=== PATIENT | female | born 1985 | race Caucasian/White ===

== ENCOUNTER 2016-10-11 06:25 | Emergency (ER) | payer SELFPAY ==
[~2016-10-11] VITALS: Ht 157.5 cm; Wt 73.0 kg
[2016-10-11] MEDS ORDERED: ONDANSETRON HCL 4MG/2ML VIAL IV STA (08:47)
[2016-10-11] MEDS ORDERED: PANTOPRAZOLE SODIUM 40 MG/VIAL IV STA (08:47)
[2016-10-11] MEDS ORDERED: MORPHINE SULFATE 4 MG/ML CPJ (NOT FOR IM USE) IV STA (08:47)
[2016-10-11 09:38] LABS: BASOPHILS % 0.6 % (0.0-2.0); DIFFERENTIAL COMMENT 0; HEMATOCRIT. 48.8 % (36.0-48.0); HEMOGLOBIN. 16.7 g/dL (12.0-16.0); LYMPHOCYTES % 10.5 % (20.0-50.0); MEAN CORPUSCULAR HEMOGLOBIN 31.1 pg (28.0-32.0); MEAN CORPUSCULAR HGB CONC 34.2 g/dL (31.0-37.0); MEAN PLATELET VOLUME 8.5 fl (7.4-10.4); MONOCYTES % 8.4 % (2.0-8.0); NEUTROPHILS % 80.5 % (40.0-76.0); PLATELET 368 x1000/uL (130-400); RED BLOOD CELL COUNT 5.36 mill/uL (4.2-5.4); RED CELL DISTRIBUTION WIDTH 13.4 % (11.6-14.6); WHITE BLOOD COUNT 10.9 x1000/uL (4.5-11.0)
[2016-10-11 09:41] LABS: CHLORIDE 98 mEq/L (98-107); INDEX HEMOLYSI 1 (1-3); INDEX ICTERIC 1 (1-4); INDEX LIPEMIC 1 (1-3)
[2016-10-11 09:50] LABS: ALANINE AMINOTRANSFERASE 20 IU/L (13-61); ALBUMIN 4.5 g/dL (3.4-5.0); ANION GAP 15; CALCIUM 9.2 mg/dL (8.5-10.1); CARBON DIOXIDE 27 mEq/L (21-32); ETHANOL BLOOD < 10 mg/dL; LIPASE 113 IU/L (73-393); UREA NITROGEN BLOOD 30 mg/dL (7-21); eGFR 45 mL/min (>60)
[2016-10-11 10:05] LABS: CLARITY URINE TURBID (CLEAR); COLOR URINE DARK YELLOW (YELLOW); GLUCOSE URINE NEGATIVE (NEGATIVE); KETONES URINE 1+ (NEGATIVE); LEUKOCYTE ESTERASE URINE TRACE (NEGATIVE); NITRITE URINE NEGATIVE (NEGATIVE); OCCULT BLOOD URINE 2+ (NEGATIVE); PROTEIN URINE 3+ (NEGATIVE); SPECIFIC GRAVITY URINE 1.035 (1.005-1.030)
[2016-10-11 10:25] LABS: BACTERIA URINE 4+; SQUAMOUS EPITHELIAL CELL URINE 3+ /lpf (RARE/1+)
[2016-10-11] MEDS ORDERED: ONDANSETRON HCL 4MG/2ML VIAL IV ONE (12:15)
[2016-10-11 13:22] LABS: *AMPHETAMINES SCREEN URINE NEGATIVE (NEGATIVE); *BARBITURATES SCREEN URINE NEGATIVE (NEGATIVE); *BENZODIAZEPINES SCREEN URINE NEGATIVE (NEGATIVE); ECSTASY MDMA SCREEN URINE NEGATIVE (NEGATIVE); METHADONE URINE SCREEN NEGATIVE (NEGATIVE); OPIATES URINE SCREEN NEGATIVE (NEGATIVE); PHENCYCLIDINE URINE SCREEN NEGATIVE (NEGATIVE)
[2016-10-11 13:28] LABS: *COCAINE SCREEN URINE PRESUMTIVE POSITIVE (NEGATIVE); CANNABINOID URINE SCREEN PRESUMTIVE POSITIVE (NEGATIVE)
[2016-10-11 13:48] VITALS: BP 142/100
== END 2016-10-11 14:09 | disposition home or self-care (01) ==
LOC: ER 07:31
DX: K29.70 Gastritis, unspecified, without bleeding (principal); F12.10 Cannabis abuse, uncomplicated
CPT/HCPCS: 36415; 76705; 80053; 80305; 81001; 83690; 85025; 96374; 96375; 96376; 99285; C9113; G0482; J2270; J2405; J7030; Z7610

== ENCOUNTER 2017-04-04 18:35 | Emergency (ER) | payer SELFPAY ==
[~2017-04-04] VITALS: Ht 157.5 cm; Wt 70.0 kg
[2017-04-04] MEDS ORDERED: SODIUM CHLORIDE 0.9% 1,000 ML IV ONE (22:17)
[2017-04-04] MEDS ORDERED: ONDANSETRON HCL 4MG/2ML VIAL IV ONE (22:30)
[2017-04-04 22:51] LABS: CARBON DIOXIDE 22 mEq/L (21-32); CHLORIDE 104 mEq/L (98-107)
[2017-04-04 22:52] LABS: HEMATOCRIT. 37.7 % (36.0-48.0); HEMOGLOBIN. 12.9 g/dL (12.0-16.0); MEAN CORPUSCULAR HEMOGLOBIN 31.5 pg (28.0-32.0); MEAN CORPUSCULAR VOLUME 92.3 fL (81.0-99.0); MEAN PLATELET VOLUME 8.6 fl (7.4-10.4); PLATELET 294 x1000/uL (130-400); RED BLOOD CELL COUNT 4.09 mill/uL (4.2-5.4)
[2017-04-04 23:07] LABS: PLATELET ESTIMATE NORMAL
[2017-04-04 23:10] LABS: B-HCG QUANTITATIVE 86624 mIU/mL (<3)
[2017-04-04 23:15] LABS: CLARITY URINE CLEAR (CLEAR); COLOR URINE YELLOW (YELLOW); GLUCOSE URINE TRACE (NEGATIVE); KETONES URINE 3+ (NEGATIVE); LEUKOCYTE ESTERASE URINE NEGATIVE (NEGATIVE); NITRITE URINE NEGATIVE (NEGATIVE); OCCULT BLOOD URINE NEGATIVE (NEGATIVE); PH URINE 5.5 (4.5-8.0); PROTEIN URINE TRACE (NEGATIVE); SPECIFIC GRAVITY URINE 1.028 (1.005-1.030); UROBILINOGEN URINE 0.2 E.U./dL (0.2-1.0)
[2017-04-05] MEDS ORDERED: CEFTRIAXONE 1 G PREMIX 50 ML IV ONE (01:45)
[2017-04-05 02:56] VITALS: BP 147/90
== END 2017-04-05 02:59 | disposition home or self-care (01) ==
LOC: ER 19:45
DX: O21.9 Vomiting of pregnancy, unspecified (principal); O23.41 Unspecified infection of urinary tract in pregnancy, first trimester; N39.0 Urinary tract infection, site not specified; O99.281 Endocrine, nutritional and metabolic diseases complicating pregnancy, first trimester; E86.0 Dehydration; O99.331 Smoking (tobacco) complicating pregnancy, first trimester; F17.200 Nicotine dependence, unspecified, uncomplicated; F12.10 Cannabis abuse, uncomplicated; Z3A.01 Less than 8 weeks gestation of pregnancy; Z98.890 Other specified postprocedural states
CPT/HCPCS: 36415; 76801; 80053; 81001; 81025; 84702; 85025; 86850; 86900; 86901; 96361; 96365; 96375; 99285; J0696; J2405; J7030; Z7610

== ENCOUNTER 2025-05-19 02:09 | Emergency (ER) | payer MEDICARE ==
[~2025-05-19] VITALS: Ht 154.9 cm; Wt 67.0 kg
[2025-05-19 02:31] VITALS: O2SAT 100
[2025-05-19] MEDS ORDERED: ONDANSETRON 4MG ODT PO ONE (03:00)
[2025-05-19] MEDS ORDERED: ACETAMINOPHEN 500MG TABLET PO ONE (03:00)
[2025-05-19] MEDS: SODIUM CHLORIDE 0.9% 1,000 ML IV ONE (03:26)
[2025-05-19] MEDS: ONDANSETRON HCL 4MG/2ML INJ IV ONE (03:26)
[2025-05-19 03:30] LABS: BASOPHILS % 0.9 % (0.0-2.0); EOSINOPHILS % 0.0 % (0.0-5.0); HEMATOCRIT. 42.8 % (36.0-48.0); HEMOGLOBIN. 14.7 g/dL (12.0-16.0); LYMPHOCYTES % 8.8 % (20.0-50.0); MEAN PLATELET VOLUME 9.0 fl (7.4-10.4); MONOCYTES % 2.5 % (2.0-8.0); NEUTROPHILS % 87.8 % (40.0-76.0); PLATELET 305 x1000/uL (130-400); RED BLOOD CELL COUNT 4.48 mill/uL (4.2-5.4); RED CELL DISTRIBUTION WIDTH 12.7 % (11.6-14.6)
[2025-05-19 03:40] LABS: CREATININE 1.1 mg/dL (0.6-1.0); HCG SCREEN NEGATIVE; UREA NITROGEN BLOOD 10 mg/dL (9-23)
[2025-05-19 03:41] LABS: PROTEIN TOTAL 8.8 g/dL (6.0-8.3)
[2025-05-19 03:42] LABS: ASPARTATE AMINOTRANSFERASE 37 IU/L (<34); BILIRUBIN DIRECT 0.4 mg/dL (<=3.0); BILIRUBIN TOTAL 1.2 mg/dL (0.1-1.0)
[2025-05-19] MEDS ORDERED: ONDA4TAB50 MT (04:35)
[2025-05-19 05:07] VITALS: BP 131/87; PULSE 81; RESP 18; TEMP 37.1; O2SAT 100
== END 2025-05-19 05:09 | disposition home or self-care (01) ==
LOC: ER 02:09
DX: R11.2 Nausea with vomiting, unspecified (principal); F12.90 Cannabis use, unspecified, uncomplicated; Z98.890 Other specified postprocedural states
CPT/HCPCS: 99283; 96374; 96361; 80076; 80048; 84703; 83690; 85025; 36415; J2405